=== PATIENT | male | born 1985 | race Two or more races ===

== ENCOUNTER 2017-05-19 21:06 | Emergency (ER) | payer SELFPAY ==
[2017-05-19 21:14] VITALS: BP 121/61
[2017-05-19] MEDS ORDERED: TRIA15OI TP (21:28)
[2017-05-19] MEDS ORDERED: PRED-220 PO (21:28)
[2017-05-19] MEDS ORDERED: FAMO20TA5 PO (21:28)
[2017-05-19] MEDS ORDERED: HYDR25TA PO (21:28)
--- NOTE | 2017-05-19 21:28 | PHYS DOC ---
Past Medical History Past Medical History: No Pertinent History Past Surgical History: No Surgical History Alcohol Use: Occasionally Drug Use: None Adult General Chief Complaint Chief Complaint: SKIN RASH/ABSCESS HPI HPI Patient is a 32 year old male who presents with a pruritic rash that began 2 days ago. Patient denies any known cause for the rash. Denies any fever. Review of Systems Review of Systems Constitutional: Denies fever or chills [] Musculoskeletal: Denies back pain or joint pain [] Integument: pruritic rash Neurologic: Denies headache, focal weakness or sensory changes [] Allergies Allergies Allergies Coded Allergies Type Severity Reaction Last Updated Verified No Known Drug Allergies 05/19/17 No Physical Exam Physical Exam Constitutional: Well developed, well nourished, no acute distress, non-toxic appearance. [] Skin: Warm, dry, no erythema, mild amount of erythematous papular rash on extremities and face suspicious of contact dermatitis. Back: No tenderness, no CVA tenderness. [] Extremities: No tenderness, no cyanosis, no clubbing, ROM intact, no edema. [] Neurologic: Alert and oriented X 3, normal motor function, normal sensory function, no focal deficits noted. [] Psychologic: Affect normal, judgement normal, mood normal. [] Current Patient Data Vital Signs Vital Signs Date Time Temp Pulse Resp B/P (MAP) Pulse Ox O2 Delivery O2 Flow Rate FiO2 05/19/17 21:14 98.2 61 16 96 Room Air 98.2 EKG EKG [] Radiology/Procedures Radiology/Procedures [] Course & Med Decision Making Course & Med Decision Making Pertinent Labs and Imaging studies reviewed. (See chart for details) Patient is in the ED with contact dermatitis rash. Discharged with hydroxyzine, triamcinolone cream, famotidine, and prednisone. Follow-up with [facility] in 2 weeks if symptoms continue. Dragon Disclaimer Dragon Disclaimer This electronic medical record was generated, in whole or in part, using a voice recognition dictation system. Departure Departure Impression: Primary Impression: Contact dermatitis Disposition: 01 HOME, SELF-CARE Condition: STABLE Referrals: BISI CRESPO MD follow up in two weeks Patient Instructions: Contact Dermatitis, [id number] Additional Instructions: You were seen with contact dermatitis rash. Take the prescribed medicines as ordered. Follow-up with the provided doctor in 2 weeks if symptoms continue. Scripts Famotidine (FAMOTIDINE) 20 Mg Tablet 20 MG PO DAILY, #14 TAB Prov: JEAN CAVAZOS APRN 05/19/17 Hydroxyzine Hcl (HYDROXYZINE HCL) 25 Mg Tablet 1 TAB PO TID, #30 TAB Prov: JEAN CAVAZOS APRN 05/19/17 Prednisone (PREDNISONE) 10 Mg Tablet 10 MG PO UD for PREDNISONE TAPER, #39 TAB 0 Refills Take 3 tablets by mouth twice a day for 3 days, then take 2 tablets by mouth twice a day for 3 days, then take 1 tablet by mouth twice a day for 3 days, then take 1 tablet by mouth daily x 3 days, then stop. Prov: JEAN CAVAZOS APRN 05/19/17 Triamcinolone Acetonide (TRIAMCINOLONE ACETONIDE 0.1% OINT) 15 Gm Oint...g. 1 HARDEEP TP BID for WOUND CARE, #1 TUBE Prov: JEAN CAVAZOS APRN 05/19/17 Problem Qualifiers Primary Impression: Contact dermatitis Contact dermatitis type: unspecified Contact dermatitis trigger: unspecified trigger Qualified Codes: L25.9 - Unspecified contact dermatitis, unspecified cause JEAN CAVAZOS APRN May 19, 2017 21:28
[2017-05-19] MEDS ORDERED: FAMOTIDINE 20 MG TABLET. PO ONE (22:00)
[2017-05-19] MEDS ORDERED: diphenhydrAMINE HCL 25 MG CAPSULE PO ONE (22:00)
[2017-05-19] MEDS ORDERED: predniSONE 20 MG TABLET PO ONE (22:00)
== END 2017-05-19 21:39 | disposition home or self-care (01) ==
LOC: ER 21:06
DX: L25.9 Unspecified contact dermatitis, unspecified cause (principal)
CPT/HCPCS: 99284; J7512; Q0163

== ENCOUNTER 2018-05-06 17:57 | Emergency (ER) | payer SELFPAY ==
[~2018-05-06 17:57] MED LIST: FAMO20TA5 PO; HYDR25TA PO; PRED-220 PO; TRIA15OI TP
== END 2018-05-06 22:21 | disposition left against medical advice (07) ==
LOC: ER 17:57
DX: L02.415 Cutaneous abscess of right lower limb (principal); Z53.21 Procedure and treatment not carried out due to patient leaving prior to being seen by health care provider

== ENCOUNTER 2021-12-24 01:44 | Emergency (ER) | payer SELFPAY ==
[~2021-12-24] VITALS: Ht 182.9 cm; Wt 81.0 kg
--- NOTE | 2021-12-24 02:41 | RAD ---
XR HUMERUS_LT 2 VIEWS 12/24/2021 2:18 AM INDICATION: Fall. Left arm and elbow injury pain COMPARISON: None available. TECHNIQUE: 2 views the left humerus are provided. FINDINGS/ IMPRESSION: There is no acute fracture or dislocation. Joint spaces are maintained. Bone mineralization is within normal limits. Regional soft tissues are within normal limits. Subcutaneous gas is identified along the mid shaft left humerus predominantly along the dorsal aspect. Focal soft tissue swelling along th e dorsum. Correlate with penetrating injury. No osseous erosion. Electronically signed by: Viry Tse MD (12/24/2021 2:39 AM) [facility]
[2021-12-24] MEDS: CEPHALEXIN 250 MG CAPSULE. PO ONE (02:48)
[2021-12-24] MEDS: LIDOCAINE 1% Multi-Dose 20 ML VIAL. INJ ONE (02:48)
--- NOTE | 2021-12-24 03:04 | PHYS DOC ---
Past Medical History Past Medical History: No Pertinent History Past Surgical History: No Surgical History Smoking Status: Never Smoker Alcohol Use: Rarely Additional Information: pt states he had 1 32oz beer today after work around 1800 Drug Use: None General Adult EDM: Chief Complaint: LACERATION/AVULSION HPI: HPI: Patient is a 36 year old male who presented to ER for evaluation of left arm injury. Patient said he was walking down the stairs when he slipped and fell down, he is struck the back of his left arm onto the stairstep, caused puncture wound with laceration. Patient denies any other injury. Patient is up-to-date his tetanus status.. Review of Systems: Review of Systems: Constitutional: Denies fever or chills. [] Eyes: Denies change in visual acuity. [] HENT: Denies nasal congestion or sore throat. [] Respiratory: Denies cough or shortness of breath. [] Cardiovascular: Denies chest pain or edema. [] GI: Denies abdominal pain, nausea, vomiting, bloody stools or diarrhea. [] : Denies dysuria. [] Musculoskeletal: Denies back pain , POSITIVE FOR LEFT ARM PAIN. Integument: POSITIVE FOR LOWER LEFT ARM LACERATION Neurologic: Denies headache, focal weakness or sensory changes. [] Endocrine: Denies polyuria or polydipsia. [] Lymphatic: Denies swollen glands. [] Psychiatric: Denies depression or anxiety. [] Heart Score: C/O Chest Pain: N/A Risk Factors: Risk Factors: DM, Current or recent (<one month) smoker, HTN, HLP, family history of CAD, obesity. Risk Scores: Score 0 - 3: 2.5% MACE over next 6 weeks - Discharge Home Score 4 - 6: 20.3% MACE over next 6 weeks - Admit for Clinical Observation Score 7 - 10: 72.7% MACE over next 6 weeks - Early Invasive Strategies Current Medications: Current Medications Medications (Trade) Dose Ordered Sig/Dariana Start Time Stop Time Status Last Admin Dose Admin Cephalexin HCl (Keflex) 1,000 mg 1X ONCE 12/24/21 03:00 12/24/21 03:01 DC 12/24/21 02:48 1,000 MG Lidocaine HCl (Lidocaine 1% 20ml Vial) 20 ml 1X ONCE 12/24/21 03:00 12/24/21 03:01 DC 12/24/21 02:48 20 ML Allergies: Allergies: Allergies Coded Allergies Type Severity Reaction Last Updated Verified No Known Drug Allergies 05/19/17 No Physical Exam: PE: Constitutional: Well developed, well nourished, no acute distress, non-toxic appearance. [] HENT: Normocephalic, atraumatic, bilateral external ears normal, oropharynx moist, no oral exudates, nose normal. [] Eyes: PERRLA, EOMI, conjunctiva normal, no discharge. [] Neck: Normal range of motion, no tenderness, supple, no stridor. [] Cardiovascular:Heart rate regular rhythm, no murmur [] Lungs & Thorax: Bilateral breath sounds clear to auscultation [] Abdomen: Bowel sounds normal, soft, no tenderness, no masses, no pulsatile masses. [] Skin: Warm, dry, no erythema, no rash. [] Back: No tenderness, no CVA tenderness. [] Extremities: THERE IS A 3 CM DEEP LACERATION ON THE DORSAL SURFACE OF DISTAL PART OF LEFT ARM JUST ABOVE THE LEFT ELBOW AREA WITH BLEEDING. NO TENDON INJURY, NO PULSATING BLEEDING. THERE IS STRONG DISTAL RADIAL PULSE, NO EVIDENCE OF COMPARTMENT SYNDROME. THE AREA IS SWOLLEN. Neurologic: Alert and oriented X 3, normal motor function, normal sensory function, no focal deficits noted. [] Psychologic: Affect normal, judgement normal, mood normal. [] Current Patient Data: Vital Signs: Vital Signs Date Time Temp Pulse Resp B/P (MAP) Pulse Ox O2 Delivery O2 Flow Rate FiO2 12/24/21 02:02 98.7 94 16 154/69 (97) 98 Room Air 98.7 EKG: EKG: [] Radiology/Procedures: Radiology/Procedures: [][facility] [address] [place] [address] IMAGING REPORT Signed PATIENT: GALI PÉREZACCOUNT: [id number] : 1985 LOCATION: ER AGE: 36 SEX: M EXAM STATUS: PRE ER ORD. PHYSICIAN: ZEHRA COBB DO REASON: fell, injured left arm/elbow PROCEDURE: HUMERUS LEFT XR HUMERUS_LT 2 VIEWS 12/24/2021 2:18 AM INDICATION: Fall. Left arm and elbow injury pain COMPARISON: None available. TECHNIQUE: 2 views the left humerus are provided. FINDINGS/ IMPRESSION: There is no acute fracture or dislocation. Joint spaces are maintained. Bone mineralization is within normal limits. Regional soft tissues are within normal limits. Subcutaneous gas is identified along the mid shaft left humerus predominantly along the dorsal aspect. Focal soft tissue swelling along the dorsum. Correlate with penetrating injury. No osseous erosion. Electronically signed by: Eduardo Trujillo MD (12/24/2021 2:39 AM) [facility] DICTATED and SIGNED BY: EDUARDO TRUJILLO MD DATE: 12/24/21237 Laceration Procedure: Location: BACK OF LOWER LEFT ARM Anesthesia: 20 ML 1% LIDOCAINE PLAIN total lenght of laceration: 3 CM Number of sutures: 5 Suture Material: 3-0-NYLON Technique: SIMPLE INTERRUPTED SINGLE LAYER. Patient tolerated procedure well. The wound was dressed with: NONSTICK GAUZE Course & Med Decision Making: Course & Med Decision Making Pertinent Labs and Imaging studies reviewed. (See chart for details) Patient is a 36-year-old male with laceration to the back of his left distal ar m, the area appears to be swollen with hematoma, no fracture. The wound was closed with suture, no tendon injury. Patient will follow up with doctor in 10 days for suture removal. Dragon Disclaimer: Dragon Disclaimer: This electronic medical record was generated, in whole or in part, using a voice recognition dictation system. Departure Departure Impression: Primary Impression: Laceration of left upper arm Disposition: 01 HOME / SELF CARE / HOMELESS Condition: IMPROVED Referrals: NO PCP (PCP) Follow up with your doctor in 10 days for sutures removal. Patient Instructions: Laceration Care, Adult Additional Instructions: Thank you for visiting our Emergency Department. We appreciate you trusting us with your care. If any additional problems come up don't hesitate to return to visit us. Please follow up with your primary care provider so they can plan additional care if needed and know about the problem that you had. If symptoms worsen come back to the Emergency Department. Any concerning symptoms that start such as chest pain, shortness of air, weakness or numbness on one side of the body, running high fevers or any other concerning symptoms return to the ER. ZEHRA COBB DO December 24, 2021 03:03
[2021-12-24 04:03] VITALS: BP 141/87
== END 2021-12-24 04:08 | disposition home or self-care (01) ==
LOC: ER 01:44
DX: S41.112A Laceration without foreign body of left upper arm, initial encounter (principal); W01.198A Fall on same level from slipping, tripping and stumbling with subsequent striking against other object, initial encounter; Y93.01 Activity, walking, marching and hiking; Y92.89 Other specified places as the place of occurrence of the external cause; Y99.8 Other external cause status
CPT/HCPCS: 12002; 73060; 99283; J3490